=== PATIENT | female | born 1955 | race Caucasian/White ===

== ENCOUNTER 2020-11-02 18:53 | Emergency (ER) | payer BC ==
[~2020-11-02] VITALS: Ht 160 cm; Wt 77.3 kg
[2020-11-02] MEDS ORDERED: NORCO 325 MG-51 TAB PO (20:05)
[2020-11-02 20:51] VITALS: BP 123/77; PULSE 53; TEMP 98.4
== END 2020-11-02 20:36 | disposition home or self-care (01) ==
LOC: COL.ER 18:53
DX: S92.511A Displaced fracture of proximal phalanx of right lesser toe(s), initial encounter for closed fracture (principal); W22.8XXA Striking against or struck by other objects, initial encounter